=== PATIENT | male | born 1960 | race Caucasian/White ===

== ENCOUNTER 2023-06-22 18:29 | Emergency (ER) | payer BC ==
[~2023-06-22] VITALS: Ht 172.7 cm; Wt 78.8 kg
[2023-06-22 19:23] LABS: BASOPHILS 0.4 % (0-2); EOSINOPHILS 0.5 % (0-6); HEMATOCRIT 46.3 % (35.0-50.0); HEMOGLOBIN 15.9 g/dL (12.0-18.0); LYMPHOCYTES 8.2 % (24-44); MCH 30.7 (27-36); MCHC 34.3 g/dl (30-36); MCV 89.4 fl (81-99); MONOCYTES 8.7 % (0-12); NEUTROPHILS 82.2 % (39-80); PLATELET COUNT 253 K/uL (140-440); RBC 5.19 M/ul (4.3-5.7); RDW 12.9 (10.5-15.0)
[2023-06-22 19:27] LABS: ALBUMIN 3.8 g/dL (3.4-5.0); ALBUMIN/GLOBULIN RATIO 1.31 (1.1-2.4); ANION GAP 14.8 (7-21); BILIRUBIN, TOTAL 0.5 ng/dL (0.2-1.0); BUN/CREATININE RATIO 16.12 (6.0-28.6); CALCIUM 8.8 mg/dL (8.5-10.1); CREATININE, SERUM 1.24 mg/dL (0.70-1.30); POTASSIUM 3.8 mmol/L (3.5-5.1); PROTEIN, TOTAL 6.7 g/dL (6.4-8.2)
[2023-06-22] MEDS ORDERED: KETOROLAC TROME10 MG PO (20:16)
[2023-06-22] MEDS ORDERED: ONDANSETRON ODT8 MG PO (20:16)
[2023-06-22] MEDS ORDERED: HYDROCODON-ACE1 EA10 PO (20:16)
[2023-06-22] MEDS ORDERED: FLOMAX0.4 MG PO (20:16)
--- OUTSIDE RECORDS SUMMARY | 2023-06-22 20:39 | XMS ---
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 E.Malaika VISIT COUNT (12 MO.) [address] [place] [address] TOTAL 2 NOTE: Visits indicate total known visits. ED/UCC VISIT TRACKING (12 MO.) 06/22/2023 18:31 [facility] Sullivan TYPE: Emergency COMPLAINT: - FLANK PAIN 05/24/2023 08:12 [facility] TYPE: Emergency DIAGNOSES: - Calculus of ureter - Abd pain - Abdominal Pain INPATIENT VISIT TRACKING (12 MO.) No inpatient visits to display in this time frame [email or web address]
[2023-06-22 20:48] VITALS: BP 111/80
[2023-06-22 20:51] LABS: BILIRUBIN, URINE POSITIVE (negative); BLOOD/HGB, URINE TRACE-I (Negative); KETONE, URINE SMALL (Negative); LEUK ESTERASE, URINE NEGATIVE (negative); NITRITE, URINE NEGATIVE (negative); PH, URINE 6.5 (5-7)
[2023-06-22 20:57] LABS: EPITHELIAL CELLS, URINE SQUAMOUS 1+ /lpf (0-1+)
[2023-06-22 21:00] LABS: BACTERIA, URINE RARE /hpf (negative); CASTS, URINE NONE SEEN \\lpf; CRYSTALS, URINE NONE SEEN (0-1+); REFLEX CULTURE, URINE No (No)
== END 2023-06-22 20:50 | disposition home or self-care (01) ==
LOC: ED 18:29
PROVIDERS: Family Medicine
DX: N13.2 Hydronephrosis with renal and ureteral calculous obstruction (principal); Q63.1 Lobulated, fused and horseshoe kidney
CPT/HCPCS: 36415; 74176; 80053; 81001; 83690; 85025; 96374; 99284-25; A9270; J1885; J7121